=== PATIENT | male | born 1965 | race Caucasian/White ===

== ENCOUNTER → 2019-08-25 | Outpatient (CLI) | payer BC ==
--- NOTE | 2019-08-25 14:29 | RAD ---
EXAM: Chest, 2 views. HISTORY: Chest pain. COMPARISON: None. FINDINGS: 2 views of the chest are obtained. There is no infiltrate, pleural effusion or pneumothorax. The heart is normal in size. IMPRESSION: No acute pulmonary finding. Electronically signed by: Esperanza Seals MD (08/25/2019 2:26 PM) [facility]
== END | disposition home or self-care (01) ==
LOC: DXRAD 11:12
PROVIDERS: ATTEND Physician Assistant
DX: R05 Cough (principal)
CPT/HCPCS: 71046

== ENCOUNTER → 2019-12-11 | Outpatient (CLI) | payer BC ==
--- NOTE | 2019-12-11 15:37 | RAD ---
FOOT LEFT 3V DATE: 12/11/2019 12:00 AM INDICATION: Reason: LEFT FOOT AND ANKLE PAIN / Spl. Instructions: / History: COMPARISON: None. FINDINGS: Bones: There is no evidence of acute fracture or dislocation. Joints: The joint spaces are normal. Miscellaneous: None. IMPRESSION: No acute osseous abnormality. Electronically signed by: Donavan Wolfe MD (12/11/2019 3:35 PM) [facility]
== END | disposition home or self-care (01) ==
LOC: DXRAD 14:52
PROVIDERS: ATTEND Family Medicine
DX: M10.072 Idiopathic gout, left ankle and foot (principal)
CPT/HCPCS: 73630

== ENCOUNTER 2020-05-20 16:53 | Emergency (ER) | payer BC ==
[~2020-05-20] VITALS: Ht 177.8 cm; Wt 85.0 kg
[2020-05-20 16:55] VITALS: BP 134/86
[2020-05-20] MEDS ORDERED: 0.9 % SODIUM CHLORIDE 10 ML DISP.SYRIN. IV PRN (17:30)
--- NOTE | 2020-05-20 17:55 | EKG ---
[facility] ED [facility] [address] [place] [id number] Test Date: 2020-05-20 Test Time: 17:48:39 Pat Name: [facility] Department: Room: Gender: M Aquatics Manager: : 1965 Requested By: RAPHAEL MORALES Order Number: [id number] Reading MD: Gabino Garcia Measurements Intervals [place] Rate: 65 P: 42 AR: 158 QRS: 18 QRSD: 82 T: 21 QT: 368 QTc: 387 Interpretive Statements SINUS RHYTHM Electronically Signed On 05-21-2020 15:37:47 MATERIAL SPREADER by Gabino Garcia
[2020-05-20] MEDS: IV NORMAL SALINE 1,000ML 1,000 ML IV SCH ×2 (17:59→19:21)
[2020-05-20] MEDS ORDERED: methylPREDNISolone SOD SUCC PF 125 MG/2 ML VIAL. IV ONE (18:00)
[2020-05-20 18:23] LABS: BASO % 0 % (0-3); EOS % 0 % (0-3); HEMOGLOBIN 15.4 g/dL (13.0-17.5); LYMPH # 1.7 x10^3/uL (1.0-4.8); LYMPH % 26 % (24-48); MEAN CORPUSCULAR HEMOGLOBIN 28 pg (25-35); MEAN CORPUSCULAR HGB CONC 33 g/dL (31-37); MEAN CORPUSCULAR VOLUME 86 fL (79-100); MONO # 0.8 x10^3/uL (0.0-1.1); MONO % 12 % (0-9); NEUT # 3.9 x10^3uL (1.8-7.7); NEUT % 61 % (31-73); PLATELET COUNT 267 x10^3/uL (140-400); RED BLOOD COUNT 5.46 x10^6/uL (4.30-5.70); RED CELL DISTRIBUTION WIDTH 13.8 % (11.5-14.5); WHITE BLOOD COUNT 6.5 x10^3/uL (4.0-11.0)
[2020-05-20 18:26] LABS: ANION GAP 11 (6-14); BLOOD UREA NITROGEN 17 mg/dL (8-26); BUN/CREATININE RATIO 13 (6-20); CALCIUM 8.6 mg/dL (8.5-10.1); CARBON DIOXIDE 26 mmol/L (21-32); CHLORIDE 99 mmol/L (98-107); CREATININE 1.3 mg/dL (0.7-1.3); GFR 57.5; GLUCOSE 95 mg/dL (70-99); POTASSIUM 4.4 mmol/L (3.5-5.1); SODIUM 136 mmol/L (136-145)
[2020-05-20 18:42] LABS: ALBUMIN 3.5 g/dL (3.4-5.0); ALBUMIN/GLOBULIN RATIO 0.9 (1.0-1.7); ALK PHOS 70 U/L (46-116); ALT (SGPT) 37 U/L (16-63); AST (SGOT) 24 U/L (15-37); MAGNESIUM 2.5 mg/dL (1.8-2.4); TOTAL BILIRUBIN 0.5 mg/dL (0.2-1.0); TOTAL PROTEIN 7.5 g/dL (6.4-8.2)
--- NOTE | 2020-05-20 18:45 | PHYS DOC ---
Past History Past Medical History: No Pertinent History (RAPHAEL MORALES APRN) Past Surgical History: No Surgical History (RAPHAEL MORALES APRN) Alcohol Use: None (RAPHAEL MORALES APRN) Adult General Chief Complaint Chief Complaint: SHORTNESS OF BREATH HPI HPI Patient is a 54-year-old male patient who presents to the ED today with multiple complaints related to COVID-19. Patient states he was diagnosed with COVID-19 almost a week ago. He states his had increased shortness of breath, cough, weakness, fatigue, and yesterday he noted loss of smell. He states has not had a fever with his symptoms. He is also complaining of nasal congestion. (RAPHAEL MORALES APRN) Review of Systems Review of Systems Constitutional: Denies fever or chills [] Eyes: Denies change in visual acuity, redness, or eye pain [] HENT: Denies nasal congestion or sore throat [] Respiratory: Denies cough or shortness of breath [] Cardiovascular: No additional information not addressed in HPI [] GI: Denies abdominal pain, nausea, vomiting, bloody stools or diarrhea [] : Denies dysuria or hematuria [] Musculoskeletal: Denies back pain or joint pain [] Integument: Denies rash or skin lesions [] Neurologic: Denies headache, focal weakness or sensory changes [] Endocrine: Denies polyuria or polydipsia [] All other systems were reviewed and found to be within normal limits, except as documented in this note. (RAPHAEL MORALES APRN) Current Medications Current Medications Current Medications Medications (Trade) Dose Ordered Sig/Kerry Start Time Stop Time Status Last Admin Dose Admin Methylprednisolone Sodium Succinate (SOLU-Medrol 125MG VIAL) 125 mg 1X ONCE 05/20/20 18:00 05/20/20 18:01 DC 05/20/20 17:59 125 MG Sodium Chloride 1,000 ml @ 500 mls/hr Q2H 05/20/20 17:21 05/20/20 21:42 05/20/20 17:59 500 MLS/HR Sodium Chloride (Normal Saline Flush) 10 ml QSHIFT PRN 05/20/20 17:30 05/20/20 17:59 10 ML (RAPHAEL MORALES APRN) Allergies Allergies Allergies Coded Allergies Type Severity Reaction Last Updated Verified No Known Drug Allergies 05/20/20 No (RAPHAEL MORALES TITA) Physical Exam Physical Exam Constitutional: Well developed, well nourished, no acute distress, non-toxic appearance. [] HENT: Normocephalic, atraumatic, bilateral external ears normal, oropharynx moist, no oral exudates, nose normal. [] Eyes: PERRLA, EOMI, conjunctiva normal, no discharge. [] Neck: Normal range of motion, no tenderness, supple, no stridor. [] Cardiovascular:Heart rate regular rhythm, no murmur [] Lungs & Thorax: Bilateral breath sounds clear to auscultation [] Abdomen: Bowel sounds normal, soft, no tenderness, no masses, no pulsatile masses. [] Skin: Warm, dry, no erythema, no rash. [] Back: No tenderness, no CVA tenderness. [] Extremities: No tenderness, no cyanosis, no clubbing, ROM intact, no edema. [] Neurologic: Alert and oriented X 3, normal motor function, normal sensory function, no focal deficits noted. [] Psychologic: Affect normal, judgement normal, mood normal. [] (CARMENRAPHAEL RIVERS) Current Patient Data Vital Signs Vital Signs Date Time Temp Pulse Resp B/P (MAP) Pulse Ox O2 Delivery O2 Flow Rate FiO2 05/20/20 16:55 98.7 70 22 134/86 (102) 98 Room Air Lab Results Laboratory Tests Test 05/20/20 17:53 White Blood Count 6.5 x10^3/uL (4.0-11.0) Red Blood Count 5.46 x10^6/uL (4.30-5.70) Hemoglobin 15.4 g/dL (13.0-17.5) Hematocrit 47.0 % (39.0-53.0) Mean Corpuscular Volume 86 fL (79-100) Mean Corpuscular Hemoglobin 28 pg (25-35) Mean Corpuscular Hemoglobin Concent 33 g/dL (31-37) Red Cell Distribution Width 13.8 % (11.5-14.5) Platelet Count 267 x10^3/uL (140-400) Neutrophils (%) (Auto) 61 % (31-73) Lymphocytes (%) (Auto) 26 % (24-48) Monocytes (%) (Auto) 12 % (0-9) H Eosinophils (%) (Auto) 0 % (0-3) Basophils (%) (Auto) 0 % (0-3) Neutrophils # (Auto) 3.9 x10^3uL (1.8-7.7) Lymphocytes # (Auto) 1.7 x10^3/uL (1.0-4.8) Monocytes # (Auto) 0.8 x10^3/uL (0.0-1.1) Eosinophils # (Auto) 0.0 x10^3/uL (0.0-0.7) Basophils # (Auto) 0.0 x10^3/uL (0.0-0.2) Prothrombin Time 10.3 SEC (9.4-11.4) Prothrombin Time INR 1.0 (0.9-1.1) Activated Partial Thromboplast Time 28 SEC (23-33) D-Dimer (Estefania) 0.33 mg/L (0.00-0.50) Sodium Level 136 mmol/L (136-145) Potassium Level 4.4 mmol/L (3.5-5.1) Chloride Level 99 mmol/L (98-107) Carbon Dioxide Level 26 mmol/L (21-32) Anion Gap 11 (6-14) Blood Urea Nitrogen 17 mg/dL (8-26) Creatinine 1.3 mg/dL (0.7-1.3) Estimated GFR (Cockcroft-Gault) 57.5 BUN/Creatinine Ratio 13 (6-20) Glucose Level 95 mg/dL (70-99) Lactic Acid Level 1.4 mmol/L (0.4-2.0) Calcium Level 8.6 mg/dL (8.5-10.1) Magnesium Level 2.5 mg/dL (1.8-2.4) H Total Bilirubin 0.5 mg/dL (0.2-1.0) Aspartate Amino Transferase (AST) 24 U/L (15-37) Alanine Aminotransferase (ALT) 37 U/L (16-63) Alkaline Phosphatase 70 U/L (46-116) Creatine Kinase 29 U/L (39-308) L Creatine Kinase MB (Mass) < 0.5 ng/mL (0.0-3.6) Creatine Kinase MB Relative Index 1.7 % (0-4) DR-Izn-F-Type Natriuretic Peptide 17 pg/mL (0-124) Total Protein 7.5 g/dL (6.4-8.2) Albumin 3.5 g/dL (3.4-5.0) Albumin/Globulin Ratio 0.9 (1.0-1.7) L (RAPHAEL MORALES APRN) EKG EKG [address] Atkinson sinus rhythm HR 65 no STEMI[] (RAPHAEL MORALES APRN) Radiology/Procedures Radiology/Procedures []PROCEDURE: PORTABLE CHEST 1V Exam: Chest one view INDICATION: Cough TECHNIQUE: Frontal view of the chest Comparisons: 08/25/2019 FINDINGS: The cardiomediastinal silhouette and pulmonary vessels are within normal limits. The lung and pleural spaces are clear. IMPRESSION: No acute cardiopulmonary process. Electronically signed by: Chivo Henley MD (05/20/2020 7:21 PM) [facility] DICTATED AND SIGNED BY: CHIVO HENLEY MD DATE: 05/20/201920 CC: GEOVANNY DELGADO MD; [facility]; RAPHAEL MORALES APRN ~ (RAPHAEL MORALES APRN) Heart Score Risk Factors: Risk Factors: DM, Current or recent (<one month) smoker, HTN, HLP, family history of CAD, obesity. Risk Scores: Risk Factors: DM, Current or recent (<one month) smoker, HTN, HLP, family history of CAD, obesity. (RAPHAEL MORALES APRN) Course & Med Decision Making Course & Med Decision Making Pertinent Labs and Imaging studies reviewed. (See chart for details) This is a 54-year-old male patient presenting to the ED today with multiple Covid related symptoms. Patient states he was diagnosed with COVID-19 a week ago and has had increased shortness of breath, coughing, body aches, fatigue, loss of smell. O2 sats are 96% and above. Temperature is normal. Chest x-ray is negative for any acute findings. BC with a normal WBC, CMP with no acute findings. Patient was given Solu-Medrol and IV fluids in the ED. He is in no distress. He was discharged home to follow-up with the PCP. (RAPHAEL MORALES APRN) Dragon Disclaimer Dragon Disclaimer This electronic medical record was generated, in whole or in part, using a voice recognition dictation system. (RAPHAEL MORALES APRN) Attending Co-Sign The patient was seen and interviewed as well as examined at the bedside. The chart was reviewed. The case was discussed. Agree with the plan of care. (SAAD KERN DO) Departure Departure: Impression: Primary Impression: COVID-19 Additional Impressions: Cough Shortness of breath Disposition: 01 DC HOME SELF CARE/HOMELESS Condition: STABLE Referrals: GEOVANNY DELGADO MD (PCP) follow with your doctor in 1-2 weeks Patient Instructions: Cough, Adult, [id number], Shortness of Breath, [id number] Additional Instructions: You were evaluated in the emergency room for COVID-19 related symptoms your work-up is negative for any acute findings. We will send you home with supportive care measures including resting, pushing fluids, maintaining good hand hygiene, wearing mask,take the prescribed medications as ordered. Please follow-up with your doctor next week Scripts Zinc (ZINC) 50 Mg Tablet 1 TAB PO DAILY for 30 Days, #30 TAB 0 Refills Prov: RAPHAEL MORALES APRN 05/20/20 Cholecalciferol (Vitamin D3) (Vitamin D3) 125 Mcg Tablet 125 MCG PO DAILY, #30 TAB Prov: RAPHAEL MORALES APRN 05/20/20 Ascorbic Acid (VITAMIN C) 100 Mg Tablet 1 TAB PO DAILY for 30 Days, #30 TAB 0 Refills Prov: RAPHAEL MORALES APRN 05/20/20 Albuterol Sulfate (Proair Respiclick) 90 Mcg Aer.pow.ba 2 PUFF IH PRN Q4-6HRS PRN for shortness of breath, #1 INHALER 0 Refills Prov: RAPHAEL MORALES APRN 05/20/20 Prednisone (PREDNISONE) 50 Mg Tablet 1 TAB PO DAILY, #5 TAB Prov: RAPHAEL MORALES APRN 05/20/20 Problem Qualifiers RAPHAEL MORALES APRN May 20, 2020 18:45 SAAD KERN DO May 21, 2020 01:07
--- NOTE | 2020-05-20 19:24 | RAD ---
Exam: Chest one view INDICATION: Cough TECHNIQUE: Frontal view of the chest Comparisons: 08/25/2019 FINDINGS: The cardiomediastinal silhouette and pulmonary vessels are within normal limits. The lung and pleural spaces are clear. IMPRESSION: No acute cardiopulmonary process. Electronically signed by: Chivo Wilkerson MD (05/20/2020 7:21 PM) [facility]
[2020-05-20] MEDS ORDERED: PRED50TA PO (19:33)
[2020-05-20] MEDS ORDERED: ASCO100T4 PO (19:33)
[2020-05-20] MEDS ORDERED: PROAIR RESPICL90 MCG IH (19:33)
[2020-05-20] MEDS ORDERED: ZINC50TA39 PO (19:46)
[2020-05-20] MEDS ORDERED: CHOL500045 PO (19:46)
[2020-05-20 20:30] LABS: AMPHETAMINE/METHAMPHETAMINE NEG (NEG); BARBITURATES NEG (NEG); BENZODIAZEPINES NEG (NEG); CANNABINOIDS NEG (NEG); COCAINE NEG (NEG); METHADONE NEG (NEG); OPIATES NEG (NEG); PHENCYCLIDINE NEG (NEG)
[2020-05-20 20:45] LABS: BACTERIA,URINE 0 /HPF (0-FEW); BILIRUBIN,URINE NEG (NEG); CLARITY,URINE CLEAR; COLOR,URINE YELLOW; GLUCOSE,URINE NEG (NEG); NITRITE,URINE NEG (NEG); RBC,URINE 0 /HPF (0-2); SQUAMOUS EPITHELIAL CELL,UR MOD /LPF; UROBILINOGEN,URINE 0.2 mg/dL (0.2 mg/dL); WBC,URINE 0 /HPF (0-4)
== END 2020-05-20 19:54 | disposition home or self-care (01) ==
LOC: ER 16:53
DX: U07.1 COVID-19 (principal); R05 Cough; R06.02 Shortness of breath; R53.1 Weakness; R53.83 Other fatigue
CPT/HCPCS: 36415; 71045; 80053; 80307; 81001; 82553; 83605; 83735; 83880; 84443; 84484; 85025; 85379; 85610; 85730; 87040; 93005; 96374; 96375; 99285; J2930; J7030